=== PATIENT | male | born 1995 | race Caucasian/White ===

== ENCOUNTER 2025-08-01 09:51 | Inpatient (IN) | payer OTHER ==
[~2025-08-01] VITALS: Ht 177.8 cm; Wt 79.7 kg
[2025-08-01 10:29] LABS: COVID AG,FIA SOURCE NASAL SWAB
[2025-08-01 10:50] LABS: PLATELET COUNT (AUTO) 197 K/uL (150-450); RED BLOOD CELL COUNT(AUTO) 4.59 MIL/uL (4.50-5.90); RED CELL DISTRIBUTION WIDTH 13.1 % (11.5-14.5); WHITE BLOOD COUNT (AUTO) 5.5 K/uL (4.5-11.0)
[2025-08-01 10:58] LABS: CALCIUM, TOTAL 8.9 mg/dL (8.8-10.5); CREATININE 1.11 mg/dL (0.60-1.30); GLOMERULAR FILTR. RATE CALC > 60 mL/min (>60); GLUCOSE,RANDOM 105 mg/dL (70-110); SODIUM SERUM 139 mmol/L (136-145); UREA NITROGEN, BLOOD 16 mg/dL (7-18)
[2025-08-01 11:05] LABS: SARS-COV2 (COVID) ANTIGEN,FIA Negative (Negative)
[2025-08-01] MEDS: SODIUM CHLORIDE 0.9% 2,000 ML IV ONE (11:42)
[2025-08-01 12:36] LABS: APPEARANCE,URINE CLEAR (CLEAR); GLUCOSE, URINE (UA) NEGATIVE (NEGATIVE); LEUKOCYTE ESTERASE ,URINE NEGATIVE (NEGATIVE); NITRATE,URINE NEGATIVE (NEGATIVE); OCCULT BLOOD,URINE NEGATIVE (NEGATIVE); PH,URINE DRUG SCREEN 6.0 (5.0-8.0); SPECIFIC GRAVITIY, URINE 1.032 (1.003-1.030)
[2025-08-01 12:47] LABS: ALCOHOL, URINE DRUG SCREEN NEGATIVE (NEGATIVE); AMPHET/METH SCREEN,URINE NEGATIVE (NEGATIVE); BARBITURATE SCREEN, URINE NEGATIVE (NEGATIVE); CANNABINOID SCREEN,URINE NEGATIVE (NEGATIVE); COCAINE SCREEN,URINE NEGATIVE (NEGATIVE); METHADONE SCREEN, URINE NEGATIVE (NEGATIVE)
[2025-08-01 12:58] LABS: INFLUENZA TYPE A NEGATIVE FOR TYPE A (NEGATIVE); INFLUENZA TYPE B NEGATIVE FOR TYPE B (NEGATIVE)
[2025-08-01] MEDS ORDERED: HYDROCODONE/ACETAMINOPHEN 5-325 MG TABLET PO PRN (15:30)
[2025-08-01] MEDS ORDERED: ONDANSETRON HCL 4 MG/2 ML VIAL IVP PRN (15:30)
[2025-08-01] MEDS ORDERED: BISACODYL 10 MG RECTAL RECTAL SUPPOSITORY PR PRN (15:30)
[2025-08-01] MEDS ORDERED: MORPHINE SULFATE 4 MG/ML SYRINGE IVP PRN (15:30)
[2025-08-01] MEDS ORDERED: ZOLPIDEM TARTRATE 5 MG TABLET PO PRN (15:30)
[2025-08-01] MEDS ORDERED: MAGNESIUM HYDROXIDE SUSPENSION 30 ML UDCUP PO PRN (15:30)
[2025-08-01] MEDS ORDERED: ACETAMINOPHEN 325 MG TABLET PO PRN (15:30)
[2025-08-01 16:00] VITALS: BP 114/71; PULSE 57; RESP 18; TEMP 97.9; O2SAT 98
[2025-08-01] MEDS: HEPARIN SODIUM,PORCINE 5,000 UNITS/ML VIAL SQ SCH (16:00)
[2025-08-01 16:21] VITALS: BP 114/71; PULSE 57; RESP 18; TEMP 97.9; O2SAT 100
[2025-08-01 20:27] VITALS: BP 121/72; PULSE 56; RESP 18; TEMP 97.7; O2SAT 100
[2025-08-01] MEDS: DOCUSATE SODIUM 100 MG CAPSULE PO SCH (21:00)
[2025-08-02 05:21] VITALS: BP 108/67; PULSE 61; RESP 18; TEMP 97.7; O2SAT 99
[2025-08-02 07:45] VITALS: BP_SYST 107; BP_SYST 110; BP_SYST 114; BP_DIAS 69; BP_DIAS 75; BP_DIAS 79; PULSE 55
[2025-08-02 07:59] LABS: TROPONIN I-HIGH SENSITIVITY 6 ng/L (<76)
[2025-08-02 08:00] VITALS: BP 107/68; PULSE 50; RESP 19; TEMP 97.9; O2SAT 98
[2025-08-02] MEDS: PANTOPRAZOLE SODIUM 40 MG DR TABLET PO SCH (08:15)
[2025-08-02 12:50] VITALS: BP 128/84; PULSE 71; RESP 17; TEMP 98.6; O2SAT 100
[2025-08-02 15:56] VITALS: BP 136/91; PULSE 102; RESP 18; TEMP 99; O2SAT 97
[2025-08-02 20:00] VITALS: BP 107/64; PULSE 69; RESP 17; TEMP 98.6; O2SAT 100
[2025-08-02] MEDS: BUPRENORPHINE HCL/NALOXONE HCL 2-0.5 MG SUBLINGUAL TABLET SL SCH (20:41)
[2025-08-03 00:29] VITALS: BP 115/77; PULSE 65; RESP 18; TEMP 98.6; O2SAT 100
[2025-08-03 03:42] VITALS: BP 123/78; PULSE 54; RESP 18; TEMP 98.1; O2SAT 98
[2025-08-03 03:51] VITALS: BP 114/80; PULSE 58; RESP 18; O2SAT 99
[2025-08-03 03:52] VITALS: BP 116/82; PULSE 71; RESP 18; O2SAT 100
[2025-08-03 06:16] LABS: CALCIUM, TOTAL 8.6 mg/dL (8.8-10.5); CREATININE 0.94 mg/dL (0.60-1.30); GLOMERULAR FILTR. RATE CALC > 60 mL/min (>60); GLUCOSE,RANDOM 97 mg/dL (70-110); SODIUM SERUM 141 mmol/L (136-145); UREA NITROGEN, BLOOD 11 mg/dL (7-18)
[2025-08-03 07:45] VITALS: BP 102/62; PULSE 66; RESP 19; TEMP 98.2; O2SAT 99
[2025-08-03 12:00] VITALS: BP 119/70; PULSE 62; RESP 16; TEMP 98.1; O2SAT 100
== END 2025-08-03 16:15 | disposition home or self-care (01) | DRG 48 ==
LOC: EMS 09:56 → EDH 12:43 → 6N 15:15 → 5S 08-02 12:25
PROVIDERS: ADMIT Internal Medicine; ATTEND Internal Medicine
DX: G90.89 Other disorders of autonomic nervous system (principal); Z59.01 Sheltered homelessness; D64.9 Anemia, unspecified; E86.0 Dehydration; J98.4 Other disorders of lung; S20.219A Contusion of unspecified front wall of thorax, initial encounter; Z20.822 Contact with and (suspected) exposure to COVID-19; R00.1 Bradycardia, unspecified; X58.XXXA Exposure to other specified factors, initial encounter; Y93.89 Activity, other specified; Y92.89 Other specified places as the place of occurrence of the external cause; Y99.8 Other external cause status
CPT/HCPCS: 71045; 80048; 80307; 81003; 84484; 85025; 87804; 93005; 93306; 93880; 99285; J1644; 36415-L1; 36415-TC